=== PATIENT | female | born 1980 | race African-American/Black ===

== ENCOUNTER 2016-09-05 10:40 | Day surgery (SDC) | payer OTHER ==
--- NOTE | 2016-07-31 10:12 | HP ---
Admitting History and Physical - Primary Care Physician PCP: Evelyn Cali - Admission Chief Complaint: right breast cancer History of Present Illness: 36 yo female with h/o right breast cancer (07/2015), s/p bilateral mastectomy and completion of chemotherapy tx, presents for removal of infusaport. Patient is also BRCA 2 positive. History Source: Patient Limitations to Obtaining History: No Limitations - Past Medical History Heme/Onc: Yes: Cancer (right breast cancer 07/2015) Psych: Yes: Anxiety Additional Past Medical History: BRCA 2 positive - Past Surgical History Past Surgical History: Yes: Mastectomy (bilateral mastectomy, right sentinel node bx with reconstruction 08/2015) Additional Past Surgical History: right ulnar nerve repair 2011 - Smoking History Smoking history: Never smoked Have you smoked in the past 12 months: No - Alcohol/Substance Use Hx Alcohol Use: Yes (SOCIALLY) Home Medications - Allergies Allergies/Adverse Reactions: Allergies Allergy/AdvReac Type Severity Reaction Status Date / Time No Known Allergies Allergy Verified 12/03/15 12:43 - Home Medications Home Medications: Ambulatory Orders Aprepitant [Emend] 80 mg PO DAILY 11/25/15 Ondansetron HCl [Zofran] 8 mg PO BID 11/25/15 Prochlorperazine Maleate 5 mg PO DAILY PRN 11/25/15 Oxycodone HCl/Acetaminophen [Percocet 5-325 mg Tablet] 1 - 2 tab PO Q6H PRN #30 tab MDD 6 12/03/15 Family Disease History - Family Disease History Family Disease History: CA: Grandparent (pancreatic ca 62) Other Family History: paternal aunt-colon cancer Review of Systems - Review of Systems Constitutional: reports: No Symptoms Cardiovascular: reports: No Symptoms Respiratory: reports: No Symptoms Physical Examination Constitutional: Yes: Well Nourished Breast(s): Yes: Other (Bilateral flaps with well healed incisions. No palpable masses or adenopathy noted bilaterally.) Problem List - Problems (1) Breast cancer, right Code(s): C50.911 - MALIGNANT NEOPLASM OF UNSP SITE OF RIGHT FEMALE BREAST Qualifiers: Breast location: overlapping sites of breast Patient gender: female Qualified Code(s): C50.811 - Malignant neoplasm of overlapping sites of right female breast Assessment/Plan Plan: Removal of lifeport
[2016-09-01 09:51] VITALS: BMI 21.0
[2016-09-05] MEDS ORDERED: LIDOCAINE HCL 1%, 10 MG/ML (20ML VIAL) ONE (11:03)
[2016-09-05] MEDS ORDERED: LIDOCAINE 1%-EPI 1:100,000 30 ML MDV IJ ONE (11:03)
[2016-09-05] MEDS ORDERED: EPINEPHrine/PF 1 MG/1 ML (1:1,000) AMPULE ONE (11:03)
[2016-09-05] MEDS ORDERED: SODIUM BICARBONATE 8.4% 50 MEQ/50 ML VIAL ONE (11:03)
[2016-09-05] MEDS ORDERED: BACITRACIN 15 GM TUBE TOPICAL OINTMENT ONE (11:04)
[2016-09-05] MEDS ORDERED: GUM MASTIC/STORAX/MSAL/ALCOHOL 1 DRP DROPSBTL MC ONE (11:04)
[2016-09-05] MEDS ORDERED: ceFAZolin SODIUM 1 GM VIAL ONE (11:26)
[2016-09-05] MEDS ORDERED: GENTAMICIN SO4 80 MG/2 ML VIAL ONE (11:26)
[2016-09-05] MEDS ORDERED: MIDAZOLAM HCL 2 MG/2 ML SINGLE DOSE VIAL ONE (11:47)
[2016-09-05] MEDS ORDERED: HYDROmorphone HCL/PF 1 MG/ML VIAL (FOR PYXIS CHARGING ONLY) ONE (12:07)
[2016-09-05] MEDS ORDERED: PROPOFOL 20 ML ONE (12:23)
[2016-09-05] MEDS ORDERED: DESFLURANE GAS 240 ML BOTTLE IH ONE (13:00)
[2016-09-05] MEDS ORDERED: ePHEDrine SULFATE 50 MG/1 ML AMPULE ONE (13:23)
[2016-09-05] MEDS ORDERED: PROMETHAZINE HCL 25 MG/1 ML VIAL IVPUSH PRN (14:29)
[2016-09-05] MEDS ORDERED: oxyCODONE HCL 5 MG TABLET PO PRN (14:29)
[2016-09-05] MEDS ORDERED: LACTATED RINGERS SOLUTION 1,000 ML IV SCH (14:30)
[2016-09-05] MEDS ORDERED: ONDANSETRON 4 MG/2 ML VIAL IVPUSH ONE (14:30)
[2016-09-05] MEDS ORDERED: ONDANSETRON 4 MG/2 ML VIAL IVPUSH PRN (15:29)
[2016-09-05 16:19] VITALS: TEMP 98.4
[2016-09-05] MEDS ORDERED: ACETAMINOPHEN 325 MG TABLET (FP) ONE (16:34)
[2016-09-05] MEDS ORDERED: oxyCODONE HCL 5 MG TABLET ONE (17:02)
[2016-09-05 17:48] VITALS: BP 116/72; PULSE 77
--- NOTE | 2016-09-06 16:24 | OP ---
DATE OF OPERATION: 09/05/2016 PREOPERATIVE DIAGNOSES: 1. Personal history of right breast cancer. 2. 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 3. Deformity of reconstructed breast. POSTOPERATIVE DIAGNOSES: 1. Personal history of right breast cancer. 2. 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 3. Deformity of reconstructed breast. PROCEDURES: 1. Removal of bilateral breast implants with open periprosthetic capsulotomies. 2. [id number] 3. Subcutaneous tissue transfer from abdomen and bilateral flanks to bilateral breasts. ATTENDING SURGEON: Frankie Walden MD GRADING MACHINE FEEDER: JARED Garcia ANESTHESIA: General endotracheal. ESTIMATED BLOOD LOSS: Less than 10 mL. SPECIMENS: Left and right breast implants to Pathology for gross examination only. DRAINS: None. COMPLICATIONS: None. CONDITION: Stable to recovery room, extubated. INDICATIONS: The patient is a 36-year-old female who has a history of right breast cancer. She underwent bilateral total mastectomies and required removal of the nipple on the right side as well. The patient has undergone immediate implant-based reconstruction and now returns due to upper pole deformities. She has been indicated for removal of her implants and placement of smooth round silicone breast implants as well as subcutaneous tissue transfer to correct the upper pole deformities. The risks, benefits and alternatives were discussed with the patient in detail and all questions were answered. The risks include but are not limited to bleeding, infection, pain, need for revision or further surgery, damage to neighboring structures including nerves, arteries, veins and tendons, residual breast asymmetry. The patient understands these risks and has elected to proceed with surgery. DESCRIPTION OF PROCEDURE: After proper identification and marking of the patient in the preoperative holding area, the patient was transported to the operating room and placed supine on the table where noninvasive anesthesia monitors were applied. Intravenous access was established. General anesthesia was administered and LMA was inserted without difficulty. SCD boots were applied to bilateral extremities. Intravenous antibiotics were then given. The patient's bilateral breasts as well as abdomen and flanks were then prepped and draped in the usual sterile fashion. Local anesthesia was then infiltrated along bilateral inframammary folds along the proposed incisions using 1% lidocaine with 1:100,000 units of epinephrine. A similar local anesthetic solution was then infiltrated into the 6 o'clock position of the umbilicus. A total of 10 mL was used. After a time-out was performed, a number 15 blade was used to make a stab incision at the 6 o'clock position of the umbilicus. Standard tumescent solution was then infiltrated into the subcutaneous tissues of the abdomen and bilateral flanks. While this was given time to take effect, attention was first turned towards the right breast, where the lateral inframammary fold incision was made. This was carried down through the subcutaneous tissue until the underlying breast capsule was encountered. The breast capsule was incised, and the silicone breast implant was removed and passed off the field to Pathology for gross examination only. The right breast capsule was noted to be soft and was irrigated. At this point, using a lighted retractor, an open periprosthetic capsulotomy was performed along the base of the capsule at the superior, superolateral and lateral aspects of the capsule. Once the capsulotomy was completed, the right breast capsule was copiously irrigated with triple antibiotic solution. At this point, a Sientra smooth round moderate plus profile 575-mL silicone breast implant was opened and bathed in triple antibiotic solution. Gloves were changed at this point and the implant was inserted into the Anderson Funnel using a no-touch technique. The implant was then placed into the right breast pocket and care was taken to ensure proper orientation. Once this was confirmed, the right breast capsule was reapproximated using a 3-0 Vicryl in an interrupted [id number] fashion. The right breast inframammary fold incision was then closed using a 3-0 PDS in a buried deep dermal fashion followed by a 4-0 Monocryl in a running subcuticular fashion. Once this was completed, attention was turned towards the left breast, where the previous inframammary fold scar was incised along its lateral extent. This was carried down through the subcutaneous tissue with electrocautery and the underlying breast capsule was encountered. The breast capsule was incised and the underlying breast implant was removed and passed off the field to Pathology. The left breast capsule was then irrigated, and the capsule was noted to be soft and pliable. An open periprosthetic capsulotomy was then performed on the left side as well in a similar fashion as to the right side and, therefore, only 1 side will be dictated. Again, on the left side, the capsule was opened along its base at the superior, superolateral and lateral aspects. The left breast capsule was then copiously irrigated with triple antibiotic solution and hemostasis was ensured. Using the Anderson Funnel, a Sientra smooth round moderate plus profile 575-mL silicone breast implant was opened and placed into the left breast pocket. Care was taken to ensure proper orientation and once this was confirmed, the capsule of the left breast was reapproximated using a 3-0 Vicryl suture in an interrupted [id number] fashion. The left breast inframammary fold incision was then closed in layers using a 3-0 PDS in a buried deep dermal fashion followed by a 3-0 Monocryl in a running subcuticular fashion. At this point, attention was turned towards the abdomen. The MicroAire system was loaded with the 5-mm cannula and the subcutaneous tissue was harvested from the abdomen as well as bilateral flanks. The lipoaspirate was collected into the Revolve System. Once an adequate amount was collected, the access incision at the 6 o'clock position of the umbilicus was closed with a 5-0 fast-absorbing plain gut in a simple interrupted fashion and this was covered with an eye patch and Tegaderm. At this point, the lipoaspirate was harvested using the Revolve System. It was washed multiple times with warm lactated Ringer's were then loaded into 10-mL syringes. Stab incisions were then made along the inframammary folds and using the infiltration cannula, the isolated adipocytes were layered just below the dermis of bilateral breast mastectomy flaps. A total of 70 mL was transferred to the left breast and a total of 50 mL was transferred to the right breast. There was noted to be a significant improvement in the breast contour with the subcutaneous tissue transfer and, therefore, once this was completed, the access incisions along the inframammary fold were reapproximated with 5-0 fast-absorbing plain gut in a simple interrupted fashion. At this point, Mastisol and Steri-Strips were placed over the breast incision closure lines. The patient was then placed into a soft surgical bra with care taken to ensure adequate padding with fluffs and ABD pads. An abdominal binder was placed as well and at this point, the patient was slowly awakened and was extubated without incident and then was transported to recovery room in stable condition. FRANKIE WALDEN M.D. [id number]
--- NOTE | 2016-09-07 12:23 | PATH ---
Surgical Pathology Report Patient Name: KRYSTAL JONAS [facility]. Rec. #: [id number] /Age/Gender: 1980 (Age: 36) / F Account: [id number] Location: [facility] AMBULATORY Taken: 09/05/2016 Received: 09/05/2016 Reported: 09/07/2016 Physicians: Evelyn Cali M.D. Specimen(s) Received A: PORTACATH LIFE PORT B: LEFT BREAST EXPLANT C: RIGHT BREAST EXPLANT Clinical History Right breast cancer Final Diagnosis A. PORTACATH LIFE PORT, REMOVAL: PORTACATH, DESCRIBED (GROSS EXAMINATION ONLY). B. EXPLANT, LEFT BREAST, REMOVAL: EXPLANT, DESCRIBED (GROSS EXAMINATION ONLY). C. EXPLANT, RIGHT BREAST, REMOVAL: EXPLANT, DESCRIBED (GROSS EXAMINATION ONLY). Electronically Signed Yandy Peterson M.D. Gross Description A. Received fresh labeled "Port-A-Cath life port," is a 3 cm in diameter x 1.5 cm in depth white, circular device, consistent with a port. The port displays a 19 cm in length portion of tubing extending from one aspect. No soft tissue is present. No sections are submitted, gross only. B. Received fresh labeled "left breast explant," is a 14.0 x 13.0 x 4.5 cm mendoza, intact breast implant. No soft tissue is present. No sections are submitted, gross only. C. Received fresh labeled "right breast explant," is a 14.0 x 13.0 x 4.5 cm mendoza, intact breast implant. No soft tissue is present. No sections are submitted, gross only. /09/06/2016 saudi09/06/2016
== END 2016-09-05 17:40 | disposition home or self-care (01) ==
LOC: FASU 10:40
PROVIDERS: ATTEND Surgery Surgical Oncology
PROC: 0HPU0JZ Removal of Synthetic Substitute from Left Breast, Open Approach (ICD-10-PCS; 2016-09-05)
PROC: 0HPT0JZ Removal of Synthetic Substitute from Right Breast, Open Approach (ICD-10-PCS; 2016-09-05)
PROC: 0HRV0JZ Replacement of Bilateral Breast with Synthetic Substitute, Open Approach (ICD-10-PCS; 2016-09-05)
PROC: 0JPT0XZ Removal of Tunneled Vascular Access Device from Trunk Subcutaneous Tissue and Fascia, Open Approach (ICD-10-PCS; principal; 2016-09-05 12:18)
PROC: 0HRV07Z Replacement of Bilateral Breast with Autologous Tissue Substitute, Open Approach (ICD-10-PCS; 2016-09-05 12:18)
PROC: 0HNV0ZZ Release Bilateral Breast, Open Approach (ICD-10-PCS; 2016-09-05 12:18)
PROC: 0HUV0JZ Supplement Bilateral Breast with Synthetic Substitute, Open Approach (ICD-10-PCS; 2016-09-05 12:18)
DX: Z45.2 Encounter for adjustment and management of vascular access device (principal); Z85.3 Personal history of malignant neoplasm of breast; Z90.13 Acquired absence of bilateral breasts and nipples; M95.4 Acquired deformity of chest and rib; N65.0 Deformity of reconstructed breast
CPT/HCPCS: 84703; 88300-TC; 94760